=== PATIENT | female | born 1995 | race Caucasian/White ===

== ENCOUNTER → 2018-08-24 | Outpatient (CLI) | payer SELFPAY ==
[~2018-08-24] MED LIST: CATHETER FLUSH 10 ML SYR IV PRN
--- NOTE | 2018-08-24 15:22 | Diagnostic Imaging Report ---
INDICATION: Abdominal pain. TECHNIQUE: The patient was administered 4.9 mCi of technetium 99m Choletec intravenously and imaging over the abdomen was performed. At 45 minutes, the patient ingested 8 ounces of Ensure and a gallbladder ejection fraction was calculated. FINDINGS: There is homogeneous uptake of activity by the liver. Prompt excretion of activity into the common duct and gallbladder is seen. There is normal passage of activity into the small bowel. The gallbladder ejection fraction is 96%. IMPRESSION: 1. No evidence of cystic duct or common bile duct obstruction. 2. Gallbladder ejection fraction of 96%. Dictated by: Dictated on workstation # [id number]
== END ==
LOC: CARD 12:01
PROVIDERS: ATTEND Pediatrics
DX: R10.9 Unspecified abdominal pain (principal)
CPT/HCPCS: 78227

== ENCOUNTER → 2021-02-22 | Outpatient (CLI) | payer MEDICAID ==
--- NOTE | 2021-02-22 14:35 | Diagnostic Imaging Report ---
INDICATION: survey. TECHNIQUE: Multiple real-time grayscale images were obtained over the gravid uterus. COMPARISON: None FINDINGS: There is a single live fetus in a breech presentation. heart rate was recorded at 152 BPM. Placenta is anterior. Amniotic fluid volume is normal. survey shows kidneys, bladder, and stomach to be unremarkable. brain is unremarkable. There is a four-chamber heart. There is a three-vessel cord with normal insertion. spine is unremarkable. Cervical length is 3.9 cm. Biometrical measurements are as follows: Biparietal 4.80 cm, age 20 weeks 4 days. Head circumference 18.42 cm, age 20 weeks 6 days. Abdominal circumference 16.52 cm, age 21 weeks 4 days. Femur length 3.42 cm, age 20 weeks 6 days. Sonographic estimate age: 21 weeks 0 days. Sonographic estimated date of delivery: 07/05/21. Estimated Weight: 401 gm (+/- 59 gm). LMP percentile: 52%. heart rate: 152 beats per minute. number: 1 of 1. IMPRESSION: Single live IUP at 21 weeks 0 days gestational age. Estimated date of confinement sonographically is 07/05/2021. No complicating features are identified. Dictated by: Dictated on workstation # [id number]
== END ==
LOC: RAD 10:45
PROVIDERS: ATTEND Obstetrics & Gynecology
DX: Z36.89 Encounter for other specified antenatal screening (principal); Z3A.21 21 weeks gestation of pregnancy
CPT/HCPCS: 76805

== ENCOUNTER 2021-06-26 14:02 | Outpatient (CLI) | payer MEDICAID ==
[~2021-06-26] VITALS: Ht 172.7 cm; Wt 75.8 kg
[2021-06-26 14:30] VITALS: BP 131/73
[2021-06-26 15:03] LABS: BILIRUBIN,URINE NEGATIVE (NEGATIVE); CLARITY,URINE CLEAR; COLOR,URINE YELLOW; GLUCOSE, URINE (UA) NEGATIVE (NEGATIVE); KETONES,URINE NEGATIVE (NEGATIVE); LEUKOCYTE ESTERASE ,URINE 1+ (NEGATIVE); NITRITE,URINE NEGATIVE (NEGATIVE); PROTEIN,URINE NEGATIVE (NEGATIVE)
[2021-06-26 15:15] LABS: BACTERIA,URINE FEW /HPF; SQUAMOUS EPITHELIAL CELL,UR 0-2 /HPF
[2021-06-26] MEDS ORDERED: ACETAMINOPHEN 500 MG TAB (TYLENOL) PO ONE (15:15)
[2021-06-26 15:34] LABS: BASOPHILS % (AUTO) 0 % (0-10); EOSINOPHILS # (AUTO) 0.1 10^3/uL (0.0-0.3); EOSINOPHILS % (AUTO) 0 % (0-10); HEMATOCRIT 36 % (35-52); HEMOGLOBIN 12.5 g/dL (11.5-16.0); LYMPHOCYTES % (AUTO) 17 % (12-44); MEAN CORPUSCULAR HEMOGLOBIN 33 pg (25-34); MEAN CORPUSCULAR HGB CONC 35 g/dL (32-36); MEAN CORPUSCULAR VOLUME 95 fL (80-99); MEAN PLATELET VOLUME 9.6 fL (9.0-12.2); MONOCYTES # (AUTO) 0.9 10^3/uL (0.0-1.0); MONOCYTES % (AUTO) 8 % (0-12); NEUTROPHILS % (AUTO) 75 % (42-75); PLATELET COUNT 247 10^3/uL (130-400); WHITE BLOOD COUNT 12.1 10^3/uL (4.3-11.0)
[2021-06-26 15:44] LABS: URINE CREATININE FOR RATIO 16 MG/DL (30-125)
[2021-06-26 15:45] LABS: URINE PROTEIN FOR RATIO ONLY < 6 MG/DL (6-12)
[2021-06-26 15:47] LABS: EOSINOPHILS % (MANUAL) 3 %; LYMPHOCYTES % (MANUAL) 14 %; MONOCYTES % (MANUAL) 7 %; NEUTROPHILS % (MANUAL) 76 %; RBC MORPH NORMAL
[2021-06-26 16:00] LABS: ALBUMIN 3.1 GM/DL (3.2-4.5); POTASSIUM 3.8 MMOL/L (3.6-5.0)
[2021-06-26 16:01] LABS: CALCIUM 8.6 MG/DL (8.5-10.1)
[2021-06-26 16:02] LABS: TOTAL PROTEIN 5.7 GM/DL (6.4-8.2)
[2021-06-26 16:04] LABS: BILIRUBIN,TOTAL 0.3 MG/DL (0.1-1.0)
[2021-06-26 16:06] LABS: CREATININE SERUM 0.67 MG/DL (0.60-1.30)
[2021-06-26 17:07] VITALS: BP 133/70
[2021-06-26 17:22] VITALS: BP 126/73
--- NOTE | 2021-06-27 07:49 | Physician Query-Final Dx ---
ZUNILDA06/27/21 0749: Clinic Account Progress/Dx Physician Query: Please give diagnosis Please include # weeks gestation Date of Service Jun 26, 2021 at 14:02 MALIK LOPEZ MD 06/27/21 1810: Clinic Account Progress/Dx DIAGNOSIS: Diagnosis Abdominal pain in Headache in Shortness of breath on exertion affecting ZUNILDA,JulJun 27, 2021 07:49 MALIK LOPEZ MD Jun 27, 2021 18:10
[2021-06-27] MEDS ORDERED: FAMOTIDINE 20 MG (PEPCID) TABLET PO SCH (09:00)
--- NOTE | 2021-06-27 17:07 | OB Triage Report ---
Standard Progress Note Progress Notes/Assess & Plan Date Seen by a Provider: Jun 26, 2021 Time Seen by a Provider: 17:30 Expected Date of Delivery: Jul 05, 2021 Gestational Age in Weeks: 38 Gestational Age in Days: 5 LMP/VIKY Comment: VIKY: 07/05/21 Progress/Assessment & Plan S: 25 yo G1 with IUP at 38w5d who presents for multiple symptoms including RUQ abdominal pain. States this has been ongoing for 3 weeks. Rates pain as a burning tingling sensation "like a nerve pain," and rates it as 4/10. Notes that baby has been more towards that right side recently. Also noted SOB with activity. She denies CP, palpitations. Patient states her abdominal pain prompted her to look up what could be wrong, and it said it could be preeclampsia, and she remembered she also has had intermittent dull frontal JONES, and flashing lights in vision intermittently in the past 6 weeks. Last time was 4 days ago. States she takes a Tylenol for her JONES, but does not really help. She notes good movements. She denies contractions, vaginal bleeding, LOF, or n/v. O: Vital Signs 06/26/21 06/26/21 14:30 17:22 Temp 36.2 Pulse 76 Resp 20 B/P (MAP) 126/73 (90) Pulse Ox 99 O2 Delivery Room Air Gen: no acute distress Lungs: CTAB, non-bored respirations, symmetric chest rise Heart: normal rate and rhythm, normal peripheral perfusion Abdomen: Gravid uterus, mild tenderness deep palpation in RUQ Skin: No lesions or rashes on abdomen Extremities: Trace equal bilat LE non-pitting edema. NTTP, normal reflexes FHR: 130bpm, mod hue, + accels, - decels Contractions: q3-5 min ( not perceived by pt) SVE: 1.5/50/-3 per RN A/P: 25 yo with IUP at 38w5d who presents with multiple symptoms as above. - r/o PreE: Multiple BPs obtained with q 15 min cycling while in triage and were within normal range 110s-120s/60s-70s (she did have one SBP value in the 130s). CBC, CMP, UPC without evidence of end organ involvement. Her abdominal pain and JONES resolved with Tylenol. Sating well on room air with good air movement on auscultation. Pt not SOB while in triage - Patient noted to be having contractions on toco, but not perceived by pt. SVE unchanged while in triage as above - Her symptoms are likely related to normal discomforts - Discussed home BP checks with patient and values to report (>/=140/90). Discussed Tylenol for pain, adequate rest, and hydration. Instructed to report persistent symptoms - Return precautions provided. S&S of labor discussed, and patient to return for labor Diagnosis/Problems Diagnosis/Problems (1) headache in third trimester Status: Resolved Resolution Date/Time: 06/26/21 @ 17:33 (2) Abdominal pain during in third trimester Status: Resolved Resolution Date/Time: 06/26/21 @ 17:34 (3) Shortness of breath due to in third trimester Status: Resolved Resolution Date/Time: 06/26/21 @ 17:34 MALIK LOPEZ MD Jun 27, 2021 17:07
== END 2021-06-26 18:25 | disposition home or self-care (01) ==
LOC: LDRP 14:02 → WSo 14:02
PROVIDERS: ATTEND Obstetrics & Gynecology
DX: O26.893 Other specified pregnancy related conditions, third trimester (principal); R10.11 Right upper quadrant pain; R51.9 Headache, unspecified; R06.02 Shortness of breath; Z3A.38 38 weeks gestation of pregnancy
CPT/HCPCS: 36415; 80053; 81000; 82570; 84156; 85007; 85027; 87088; 99214

== ENCOUNTER 2021-07-09 12:58 | Inpatient (IN) | payer MEDICAID ==
[2021-07-09] VITALS (11 sets, daily range): BP systolic 125–147; BP diastolic 66–84
[~2021-07-09] VITALS: Ht 172.7 cm; Wt 78.1 kg
[2021-07-09 13:30] LABS: BILIRUBIN,URINE NEGATIVE (NEGATIVE); CLARITY,URINE CLEAR; COLOR,URINE YELLOW; GLUCOSE, URINE (UA) NEGATIVE (NEGATIVE); KETONES,URINE NEGATIVE (NEGATIVE); LEUKOCYTE ESTERASE ,URINE 1+ (NEGATIVE); NITRITE,URINE NEGATIVE (NEGATIVE); PROTEIN,URINE NEGATIVE (NEGATIVE)
[2021-07-09 13:38] LABS: BACTERIA,URINE TRACE /HPF
[2021-07-09] MEDS ORDERED: AMPICILLIN FOR IV USE 2,000 MG in NS (IVPB) 50 ML IV SCH (16:26)
[2021-07-09] MEDS ORDERED: MINERAL OIL CONCENTRATE 99.9% 15 ML UDC TOP PRN (16:30)
[2021-07-09 16:51] LABS: URINE CREATININE FOR RATIO 43 MG/DL (30-125)
[2021-07-09 16:52] LABS: URINE PROTEIN FOR RATIO ONLY < 6 MG/DL (6-12)
[2021-07-09 17:11] LABS: BASOPHILS % (AUTO) 0 % (0-10); EOSINOPHILS # (AUTO) 0.1 10^3/uL (0.0-0.3); EOSINOPHILS % (AUTO) 1 % (0-10); HEMATOCRIT 36 % (35-52); HEMOGLOBIN 12.7 g/dL (11.5-16.0); LYMPHOCYTES # (AUTO) 2.1 10^3/uL (1.0-4.0); LYMPHOCYTES % (AUTO) 15 % (12-44); MEAN CORPUSCULAR HEMOGLOBIN 33 pg (25-34); MEAN CORPUSCULAR HGB CONC 35 g/dL (32-36); MEAN CORPUSCULAR VOLUME 95 fL (80-99); MEAN PLATELET VOLUME 9.8 fL (9.0-12.2); MONOCYTES # (AUTO) 0.9 10^3/uL (0.0-1.0); MONOCYTES % (AUTO) 7 % (0-12); NEUTROPHILS # (AUTO) 10.7 10^3/uL (1.8-7.8); NEUTROPHILS % (AUTO) 78 % (42-75); PLATELET COUNT 250 10^3/uL (130-400); WHITE BLOOD COUNT 13.8 10^3/uL (4.3-11.0)
[2021-07-09] MEDS: LACTATED RINGERS 1,000 ML IV SCH (17:12)
[2021-07-09 17:26] LABS: URIC ACID 5.1 MG/DL (2.6-7.2)
--- NOTE | 2021-07-09 17:30 | History & Physical-OB ---
OB - Chief Complaint & HPI Date/Time Date of Admission: Date of Admission: Jul 09, 2021 at 16:20 Chief Complaint/History Expected Date of Delivery: Jul 05, 2021 Gestational Age in Weeks: 40 Gestational Age in Days: 4 Allergies and Home Medications Allergies Coded Allergies: No Known Drug Allergies (Unverified , 07/09/21) Patient Home Medication List No Active Prescriptions or Reported Meds OB - History Social History/Family History 2nd Hand Smoke Exposure: No Immunizations Influenza Vaccine Up-to-Date: No; Not Current Hepatitis A: Yes Hepatitis B: Yes OB - Admission Exam Labs Laboratory Tests Test 07/09/21 13:15 07/09/21 17:00 Range/Units Urine Color YELLOW Urine Clarity CLEAR Urine pH 7.0 5-9 Urine Specific [place] 1.010 L 1.016-1.022 Urine Protein < 6 L 6-12 MG/DL Urine Glucose (UA) NEGATIVE NEGATIVE Urine Ketones NEGATIVE NEGATIVE Urine Nitrite NEGATIVE NEGATIVE Urine Bilirubin NEGATIVE NEGATIVE Urine Urobilinogen 0.2 < = 1.0 MG/DL Urine Leukocyte Esterase 1+ H NEGATIVE Urine RBC (Auto) TRACE-I H NEGATIVE Urine RBC NONE /HPF Urine WBC 5-10 H /HPF Urine Squamous Epithelial Cells 2-5 /HPF Urine Crystals NONE /LPF Urine Bacteria TRACE /HPF Urine Casts NONE /LPF Urine Mucus NEGATIVE /LPF Urine Culture Indicated NO Urine Creatinine 43 30-125 MG/DL Urine Protein/Creatinine Ratio White Blood Count 13.8 H 4.3-11.0 10^3/uL Red Blood Count 3.82 3.80-5.11 10^6/uL Hemoglobin 12.7 11.5-16.0 g/dL Hematocrit 36 35-52 % Mean Corpuscular Volume 95 80-99 fL Mean Corpuscular Hemoglobin 33 25-34 pg Mean Corpuscular Hemoglobin Concent 35 32-36 g/dL Red Cell Distribution Width 12.1 10.0-14.5 % Platelet Count 250 130-400 10^3/uL Mean Platelet Volume 9.8 9.0-12.2 fL Immature Granulocyte % (Auto) 0 % Neutrophils (%) (Auto) 78 H 42-75 % Lymphocytes (%) (Auto) 15 12-44 % Monocytes (%) (Auto) 7 0-12 % Eosinophils (%) (Auto) 1 0-10 % Basophils (%) (Auto) 0 0-10 % Neutrophils # (Auto) 10.7 H 1.8-7.8 10^3/uL Lymphocytes # (Auto) 2.1 1.0-4.0 10^3/uL Monocytes # (Auto) 0.9 0.0-1.0 10^3/uL Eosinophils # (Auto) 0.1 0.0-0.3 10^3/uL Basophils # (Auto) 0.0 0.0-0.1 10^3/uL Immature Granulocyte # (Auto) 0.1 0.0-0.1 10^3/uL Uric Acid 5.1 2.6-7.2 MG/DL Lactate Dehydrogenase 176 125-220 U/L RAMONE OSORIO DO Jul 09, 2021 17:30
[2021-07-09] MEDS ORDERED: ZOLPIDEM 5 MG (AMBIEN) TAB PO PRN (17:45)
[2021-07-09] MEDS: D5 LR IV SOLUTION 1,000 ML IV SCH (18:11)
[2021-07-09 18:53] LABS: ALBUMIN 3.3 GM/DL (3.2-4.5)
[2021-07-09 18:54] LABS: CALCIUM 9.2 MG/DL (8.5-10.1)
[2021-07-09 18:56] LABS: TOTAL PROTEIN 6.4 GM/DL (6.4-8.2)
[2021-07-09 18:58] LABS: BILIRUBIN,TOTAL 0.2 MG/DL (0.1-1.0)
[2021-07-09 18:59] LABS: CREATININE SERUM 0.71 MG/DL (0.60-1.30)
[2021-07-09] MEDS ORDERED: LACT1CAP64 PO (19:40)
[2021-07-09] MEDS ORDERED: PREN-8 PO (19:40)
[2021-07-09] MEDS: ACETAMINOPHEN 500 MG TAB (TYLENOL) PO PRN (19:56)
[2021-07-09] MEDS: AMPICILLIN FOR IV USE 1,000 MG in NS (IVPB) 50 ML IV SCH (22:22)
[2021-07-09] MEDS ORDERED: morphine INJ 10 MG/ML 1ML (SYR OR VIAL) ONE (22:38)
[2021-07-09] MEDS ORDERED: morphine INJ 10 MG/ML 1ML (SYR OR VIAL) IVP PRN (22:45)
[2021-07-10] VITALS (41 sets, daily range): BP systolic 102–141; BP diastolic 55–82
[2021-07-10] MEDS: LACTATED RINGERS 1,000 ML IV SCH (00:17)
[2021-07-10] MEDS ORDERED: fentaNYL 2 mcg/ml BUPIVA 0.125 100 ML ONE (00:30)
[2021-07-10] MEDS ORDERED: fentaNYL INJ 100 MCG/2 ML AMP ONE (01:12)
[2021-07-10] MEDS ORDERED: BUPIVACAINE 0.25% 30 ML (SENSORCAINE) VIAL ONE (01:12)
[2021-07-10] MEDS ORDERED: CATHETER FLUSH 10 ML SYR IV PRN (01:45)
[2021-07-10] MEDS ORDERED: NALOXONE 0.4 MG/ML 1 ML (NARCAN) VIAL IV PRN ×2 (01:45→09:45)
[2021-07-10] MEDS ORDERED: fentaNYL 2 mcg/ml BUPIVA 0.125 100 ML IV SCH (01:45)
[2021-07-10] MEDS ORDERED: LACTATED RINGERS 1,000 ML IV ONE (01:45)
[2021-07-10] MEDS: AMPICILLIN FOR IV USE 1,000 MG in NS (IVPB) 50 ML IV SCH ×2 (02:32→06:25)
[2021-07-10] MEDS: D5 LR IV SOLUTION 1,000 ML IV SCH (02:32)
[2021-07-10] MEDS ORDERED: diphenhydrAMINE 50 MG/ML INJ (BENADRYL) IV PRN (03:30)
[2021-07-10] MEDS ORDERED: diphenhydrAMINE 50 MG/ML INJ (BENADRYL) ONE (03:31)
[2021-07-10] MEDS ORDERED: ONDANSETRON 4 MG/2 ML (SDV) Z0FRAN ONE (03:41)
[2021-07-10] MEDS ORDERED: OXYTOCIN PRE-MIX DRIP 500 ML IV ONE (06:06)
[2021-07-10] MEDS: CATHETER FLUSH 10 ML SYR IV SCH ×2 (06:17→06:21)
[2021-07-10] MEDS: ACETAMINOPHEN 500 MG TAB (TYLENOL) PO PRN (08:00)
--- NOTE | 2021-07-10 09:39 | OB Labor & Delivery Record ---
Vag Delivery Note Vag Delivery Note Date of Delivery: 07/10/21 Preoperative Diagnosis: Lela Blackburn is a (25 /Para / ,Gestational Age (wks)40with [] Postoperative Diagnosis: Same Surgeon: RAMONE OSORIO Post Manager: [] Anesthesia: [] Delivery Type: [] Findings: [] Viable [] , apgars [], weight [] Lacerations: Intact placenta with 3 vessel cord. No nuchal cord, body cord or shoulder dystocia Cytotec 800 mcg placed for hemorrhage prophylaxis Estimated Blood Loss: [] ml Complications: None Condition: Stable Description of Procedure: The patient is a 25 year old female who presented []. She was admitted and informed consent was obtained. Her labor course was remarkable for [] She pr ogressed to complete dilatation and began to push. She was then set up for delivery. The 's head was delivered atraumatically in the [] position. The shoulders and remainder of the infant's body were then delivered without difficulty. Upon delivery, the head was held below the level of the perineum and the mouth and nares were bulb suctioned. The cord was doubly clamped and cut and the infant was handed off to the pediatric staff. An intact placenta with 3-vessel cord delivered via Sandy and there was found to be minimal bleeding.~ Vigorous fundal massage was performed and the fundus was found to be firm. IV oxytocin was given. Examination of the vagina and perineum revealed a [] laceration repaired in the usual fashion with 3-0 vicryl suture. Following the repair, sponge, instrument and needle counts were correct. Mom and baby were both in stable condition in the labor suite. Vitals - Labs Vital Signs - I&O Vital Signs Date Time Temp Pulse Resp B/P (MAP) Pulse Ox O2 Delivery O2 Flow Rate FiO2 07/10/21 07:00 101 16 117/71 (86) 99 Room Air 07/10/21 06:40 106 16 129/79 (96) 99 Room Air 07/10/21 06:21 37.7 107 16 121/68 (85) Room Air 07/10/21 06:01 95 16 117/71 (86) 97 Room Air 07/10/21 05:40 103 16 116/68 (84) 97 Room Air 07/10/21 05:21 102 18 112/64 (80) 96 Room Air 07/10/21 05:00 37.5 108 16 114/72 (86) 97 Room Air 07/10/21 04:41 103 16 111/60 (77) 97 Room Air 07/10/21 04:20 88 16 112/60 (77) 98 Room Air 07/10/21 04:00 95 16 117/64 (81) 99 Room Air 07/10/21 03:42 107 16 110/58 (75) 100 Room Air 07/10/21 03:21 36.9 115 18 135/79 (97) 99 Room Air 07/10/21 03:00 117 18 111/71 (84) 98 Room Air 07/10/21 02:40 100 16 114/71 (85) 100 Room Air 07/10/21 02:20 107 16 112/73 (86) 98 07/10/21 01:59 110 16 129/73 (91) 99 Room Air 07/10/21 01:56 102 16 128/70 (89) Room Air 07/10/21 01:53 110 16 128/75 (92) 99 Room Air 07/10/21 01:50 102 16 124/70 (88) 99 Room Air 07/10/21 01:47 109 16 120/73 (89) 99 Room Air 07/10/21 01:43 99 16 123/70 (87) 98 Room Air 07/10/21 01:40 36.8 102 16 121/70 (87) 99 Room Air 07/10/21 01:37 98 18 131/70 (90) 99 Room Air 07/10/21 01:34 101 20 133/71 (91) 98 Room Air 07/10/21 01:31 104 20 141/77 (98) 98 Room Air 07/10/21 01:27 127 20 105/66 (79) 97 Room Air 07/10/21 01:26 127 20 102/61 (75) 97 Room Air 07/10/21 01:20 36.2 125 20 121/75 (90) 98 Room Air 07/10/21 00:28 106 20 134/81 (98) 99 Room Air 07/09/21 23:57 90 20 132/80 (97) 98 Room Air 07/09/21 23:27 97 20 127/66 (86) 99 Room Air 07/09/21 22:57 96 20 132/83 (99) 98 Room Air 07/09/21 22:27 36.2 88 20 137/83 (101) Room Air 07/09/21 21:56 75 18 125/76 (92) Room Air 07/09/21 21:40 78 18 138/84 (102) Room Air 07/09/21 21:00 82 16 144/73 (96) Room Air 07/09/21 20:27 36.1 82 16 147/82 (103) Room Air 07/09/21 20:27 36.1 82 18 147/82 (103) Room Air 07/09/21 18:15 36.8 72 18 128/70 (89) Room Air 07/09/21 13:20 36.5 86 18 97 Room Air I & O 07/10/21 06:59 Intake Total 3164.8 ml Balance 3164.8 ml Labs Laboratory Tests 07/09/21 13:15: Urine Color YELLOW, Urine Clarity CLEAR, Urine pH 7.0, Urine Specific [place] 1.010L, Urine Protein < 6L, Urine Glucose (UA) NEGATIVE, Urine Ketones NEGATIVE, Urine Nitrite NEGATIVE, Urine Bilirubin NEGATIVE, Urine Urobilinogen 0.2, Urine Leukocyte Esterase 1+H, Urine RBC (Auto) TRACE-IH, Urine RBC NONE, Urine WBC 5- 10H, Urine Squamous Epithelial Cells 2-5, Urine Crystals NONE, Urine Bacteria TRACE, Urine Casts NONE, Urine Mucus NEGATIVE, Urine Culture Indicated NO, Urine Creatinine 43, Urine Protein/Creatinine Ratio 07/09/21 17:00: White Blood Count 13.8H, Red Blood Count 3.82, Hemoglobin 12.7, Hematocrit 36, Mean Corpuscular Volume 95, Mean Corpuscular Hemoglobin 33, Mean Corpuscular Hemoglobin Concent 35, Red Cell Distribution Width 12.1, Platelet Count 250, Mean Platelet Volume 9.8, Immature Granulocyte % (Auto) 0, Neutrophils (%) (Auto) 78H, Lymphocytes (%) (Auto) 15, Monocytes (%) (Auto) 7, Eosinophils (%) (Auto) 1, Basophils (%) (Auto) 0, Neutrophils # (Auto) 10.7H, Lymphocytes # (Auto) 2.1, Monocytes # (Auto) 0.9, Eosinophils # (Auto) 0.1, Basophils # (Auto) 0.0, Immature Granulocyte # (Auto) 0.1, Sodium Level 136, Potassium Level 4.0, Chloride Level 106, Carbon Dioxide Level 18L, Anion Gap 12, Blood Urea Nitrogen 11, Creatinine 0.71, Estimat Glomerular Filtration Rate 99, BUN/Creatinine Ratio 15, Glucose Level 102, Uric Acid 5.1, Calcium Level 9.2, Corrected Calcium 9.8, Total Bilirubin 0.2, Aspartate Amino Transf (AST/SGOT) 18, Alanine Aminotransferase (ALT/SGPT) 15, Alkaline Phosphatase 146H, Lactate Dehydrogenase 176, Total Protein 6.4, Albumin 3.3 RAMONE OSORIO DO Jul 10, 2021 09:39
[2021-07-10] MEDS ORDERED: MEASLES,MUMPS,RUBELLA 1 EA INJ SQ ONE (09:45)
[2021-07-10] MEDS ORDERED: OXYTOCIN PRE-MIX DRIP 500 ML IV SCH (09:45)
[2021-07-10] MEDS ORDERED: WITCH HAZEL(TUCKS) 40 EA JAR TOP PRN (09:45)
[2021-07-10] MEDS ORDERED: BENZOCAINE/MENTHOL (DERMOPLAST) 56 ML CAN TP PRN (09:45)
[2021-07-10] MEDS ORDERED: DIBUCAINE 1% OINTMENT 30 GM TUBE TOP PRN (09:45)
[2021-07-10] MEDS ORDERED: TETANUS,DIPTH,PERTUSS P/F (BOOSTRIX) 0.5 ML VIAL IM ONE (09:45)
[2021-07-10] MEDS: IBUPROFEN 600 MG (MOTRIN) TAB PO SCH ×2 (11:55→18:12)
[2021-07-10] MEDS ORDERED: DOCUSATE SODIUM 100 MG (COLACE) CAP PO ONE (11:57)
[2021-07-10] MEDS: DOCUSATE SODIUM 100 MG (COLACE) CAP PO SCH ×2 (11:59→20:47)
[2021-07-10] MEDS ORDERED: CATHETER FLUSH 10 ML SYR IV SCH (14:00)
[2021-07-10] MEDS ORDERED: ACETAMINOPHEN 500 MG TAB (TYLENOL) PO SCH (14:00)
[2021-07-11] MEDS: IBUPROFEN 600 MG (MOTRIN) TAB PO SCH ×3 (00:02→11:34)
[2021-07-11 00:04] VITALS: BP 126/76
[2021-07-11 06:11] LABS: BASOPHILS % (AUTO) 0 % (0-10); EOSINOPHILS # (AUTO) 0.1 10^3/uL (0.0-0.3); EOSINOPHILS % (AUTO) 0 % (0-10); HEMATOCRIT 35 % (35-52); HEMOGLOBIN 12.1 g/dL (11.5-16.0); LYMPHOCYTES # (AUTO) 2.7 10^3/uL (1.0-4.0); LYMPHOCYTES % (AUTO) 13 % (12-44); MEAN CORPUSCULAR HEMOGLOBIN 33 pg (25-34); MEAN CORPUSCULAR HGB CONC 34 g/dL (32-36); MEAN CORPUSCULAR VOLUME 97 fL (80-99); MEAN PLATELET VOLUME 9.5 fL (9.0-12.2); MONOCYTES # (AUTO) 0.9 10^3/uL (0.0-1.0); MONOCYTES % (AUTO) 5 % (0-12); NEUTROPHILS # (AUTO) 16.5 10^3/uL (1.8-7.8); NEUTROPHILS % (AUTO) 81 % (42-75); PLATELET COUNT 236 10^3/uL (130-400); WHITE BLOOD COUNT 20.4 10^3/uL (4.3-11.0)
[2021-07-11 06:20] VITALS: BP 108/56
[2021-07-11] MEDS ORDERED: PRENATAL VITAMIN 1 EA TAB PO SCH (07:00)
[2021-07-11] MEDS ORDERED: ACET-93 PO (07:24)
[2021-07-11] MEDS ORDERED: OXC5T PO (07:24)
[2021-07-11] MEDS ORDERED: IBUP-844 PO (07:24)
--- NOTE | 2021-07-11 07:27 | Discharge Inst-Women's Service ---
Discharge Inst-Women's Serv Depart Medication/Instructions New, Converted or Re-Newed RX: Transmitted to Pharmacy Instructions nothing in the vagina for 4 weeks Final Diagnosis induction 39 week gestation 2nd degree laceration Problems Reviewed?: Yes Consults/Follow Up Additional Follow Up: Yes (2 week pp with Thu and 6 weeks pp) Activity Activity: Activity as Tolerated Driving Instructions: You May Drive NO SMOKING: NO SMOKING Nothing Inside Vagina: No Douching, No [place], No Tampons Diet Discharge Diet: No Restrictions Symptoms to Report to : Swelling Increased, Bleeding Excessive, Pain Increased, Fever Over 101 Degrees F, Vaginal Bleeding Increase, Cramps in Feet or Legs, Vaginal Discharge Foul For Any Problems or Questions: Contact Your Physician RAMONE OSORIO DO Jul 11, 2021 07:27
[2021-07-11] MEDS: DOCUSATE SODIUM 100 MG (COLACE) CAP PO SCH (08:17)
[2021-07-11 08:20] VITALS: BP 114/66
[2021-07-11] MEDS ORDERED: FERROUS SULF 325 MG (IRON) TAB PO SCH (09:00)
--- NOTE | 2021-07-11 09:11 | Anesthesia-Regional Post-Op ---
Regional Patient Condition Mental Status: Alert, Oriented x3 Circulation: Same as Pre-Op Headache: Absent Sensation: Full Recovery Motor Block: Absent Post Op Complications Complications None Follow Up Care/Instructions Patient Instructions None needed. Anesthesia/Patient Condition Patient is doing well, no complaints, stable vital signs, no apparent adverse anesthesia problems. No complications reported per nursing. ANGIE FERNANDEZ CRNA Jul 11, 2021 09:11
[2021-07-11 11:38] VITALS: BP 118/63
--- NOTE | 2021-07-11 11:55 | Postpartum Progress Note ---
Note Note Day # 1 Subjective: Patient is without complaints. Ambulating, voiding. Tolerating a regular diet without nausea or vomiting. Normal lochia. Pain is well controlled with oral pain medications. Breast feeding. Objective: Physical Exam: General - Alert and oriented, no apparent distress Abdomen - Soft, appropriately tender to palpation, non-distended, fundus firm at umbilicus Extremities - no edema, negative Andre's bilaterally Assessment: Post- day # 1, status post vaginal delivery. Recovering well, hemodynamically stable Acute blood loss anemia Plan: Routine care. Encourage breast feeding. Encourage ambulation. Ferrous sulfate supplementation. Plan for discharge today, pending baby's DC orders Vitals - Labs Vital Signs - I&O Vital Signs Date Time Temp Pulse Resp B/P (MAP) Pulse Ox O2 Delivery O2 Flow Rate FiO2 07/11/21 11:38 36.8 88 18 118/63 (81) 98 Room Air 07/11/21 08:20 36.7 78 18 114/66 (82) 98 Room Air 07/11/21 06:20 36.6 84 18 108/56 (73) 98 Room Air 07/11/21 00:04 36.4 90 18 126/76 (93) 97 Room Air 07/10/21 20:58 36.7 89 18 141/67 (91) 98 Room Air 07/10/21 16:12 86 16 121/71 (88) 98 07/10/21 11:59 90 16 114/61 (78) I & O 07/11/21 07:00 Intake Total 1100 ml Balance 1100 ml Labs Laboratory Tests 07/11/21 06:05: White Blood Count 20.4H, Red Blood Count 3.67L, Hemoglobin 12.1, Hematocrit 35, Mean Corpuscular Volume 97, Mean Corpuscular Hemoglobin 33, Mean Corpuscular Hemoglobin Concent 34, Red Cell Distribution Width 12.5, Platelet Count 236, Mean Platelet Volume 9.5, Immature Granulocyte % (Auto) 0, Neutrophils (%) (Auto) 81H, Lymphocytes (%) (Auto) 13, Monocytes (%) (Auto) 5, Eosinophils (%) (Auto) 0, Basophils (%) (Auto) 0, Neutrophils # (Auto) 16.5H, Lymphocytes # (Auto) 2.7, Monocytes # (Auto) 0.9, Eosinophils # (Auto) 0.1, Basophils # (Auto) 0.0, Immature Granulocyte # (Auto) 0.1 DAVE BRITO APRN Jul 11, 2021 11:55
== END 2021-07-11 14:05 | disposition home or self-care (01) | DRG 806 ==
LOC: WSo 12:58 → LDRP 12:59 → WSo 16:20 → LDRP 16:20
PROVIDERS: ADMIT Obstetrics & Gynecology; ATTEND Obstetrics & Gynecology
PROC: 10E0XZZ Delivery of Products of Conception, External Approach (ICD-10-PCS; principal; 2021-07-10)
PROC: 0HQ9XZZ Repair Perineum Skin, External Approach (ICD-10-PCS; 2021-07-10)
DX: O48.0 Post-term pregnancy (principal); D62 Acute posthemorrhagic anemia; Z37.0 Single live birth; Z3A.40 40 weeks gestation of pregnancy; O70.0 First degree perineal laceration during delivery; O90.81 Anemia of the puerperium
CPT/HCPCS: 36415; 80053; 81000; 82570; 83615; 84156; 84550; 85025; 86850; 86900; 86901; 99212